=== PATIENT | male | born 1985 | race Two or more races ===

== ENCOUNTER 2018-05-25 17:05 | Emergency (ER) | payer MEDICAID, OTHER ==
[~2018-05-25] VITALS: Ht 172.7 cm; Wt 90.7 kg
[~2018-05-25 17:05] MED LIST: CLINDAMYCIN HC300 MG ORAL; LABETALOL HCL100 MG ORAL; NOVOLIN R100 UNIT/1 SUBQ; REGLAN5 MG ORAL; ZOFRAN4 MG ORAL
[2018-05-25 17:28] VITALS: BP 209/151
--- NOTE | 2018-05-25 18:47 | Emergency Room Report ---
History of Present Illness General Chief Complaint: Chest Pain Source: Patient, EMS Present Illness HPI This patient states that he feels he has fluid overload. He complains of all over body pain. He states that he has end-stage renal disease and is dialysis dependent. He states that [place] which is why he missed his dialysis. He states that dialysis is not a priority for him because his life is very busy. He missed 2 dialysis appointments in the last week. He has no recent illness. Denies cough or congestion. He denies fever or chills. He denies nausea or vomiting. He has no other complaints. Allergies: Coded Allergies: PENICILLINS (Unverified Allergy, Unknown, 09/11/14) Patient History Past Medical History: see triage record, DM, HTN, renal disease, dialysis, other - Pancreatitis Social History: Denies: smoking, alcohol use, drug use Reviewed Nursing Documentation: PMH: Agreed; PSxH: Agreed Nursing Documentation-PMH Past Medical History: No History, Except For Hx Cardiac Problems: No Hx Hypertension: Yes Hx Pacemaker: No Hx Asthma: Yes Hx COPD: No Hx Diabetes: Yes Hx Cancer: No Hx Gastrointestinal Problems: Yes - pancreatitis Hx Dialysis: Yes - renal failure, T,TH, SAT Hx Neurological Problems: No Hx Cerebrovascular Accident: No Hx Seizures: No Review of Systems All Other Systems: negative except mentioned in HPI Physical Exam Vital Signs Date Time Temp Pulse Resp B/P (MAP) Pulse Ox O2 Delivery O2 Flow Rate FiO2 05/25/18 17:08 99.5 103 20 200/100 100 Room Air 05/25/18 17:28 100 Sp02 EP Interpretation: reviewed, normal General Appearance: no apparent distress, alert, GCS 15, non-toxic Head: normocephalic, atraumatic Eyes: bilateral eye normal inspection, bilateral eye PERRL ENT: hearing grossly normal, normal pharynx, no angioedema, normal voice Neck: full range of motion, supple/symm/no masses Respiratory: chest non-tender, lungs clear, normal breath sounds, no respiratory distress, no retraction, no accessory muscle use, speaking full sentences Cardiovascular #1: regular rate, rhythm, no edema Gastrointestinal: normal bowel sounds, non tender, soft, non-distended, no guarding, no rebound Rectal: deferred Musculoskeletal: back normal, gait/station normal, normal range of motion, non- tender Neurologic: alert, oriented x3, responsive, motor strength/tone normal, sensory intact, speech normal Psychiatric: judgement/insight normal, memory normal, mood/affect normal, no suicidal/homicidal ideation Skin: normal color, no rash, warm/dry, well hydrated Medical Decision Making Diagnostic Impression: Primary Impression: Fluid overload Additional Impression: Missed dialysis ER Course This patient missed dialysis multiple times. He is noncompliant with dialysis. The nursing staff and lab was unable to get labs and an IV on this patient. Therefore I had to put in a central line in the right internal jugular vein. This was placed without complication or incident. The line was deep, however, the patient was intolerant of the suturing and so although the line was deeper than it should be, I did not pull it back as this would require re-suturing of the line. He also has some oozing from the line insertion site. The patient was transferred to [facility] secondary to insurance. He is transferred for dialysis. Laboratory Tests Test 05/25/18 20:45 White Blood Count 4.6 K/UL (4.8-10.8) L Red Blood Count 2.93 M/UL (4.70-6.10) L Hemoglobin 8.2 G/DL (14.2-18.0) L Hematocrit 25.9 % (42.0-52.0) L Mean Corpuscular Volume 88 FL (80-99) Mean Corpuscular Hemoglobin 28.0 PG (27.0-31.0) Mean Corpuscular Hemoglobin Concent 31.7 G/DL (32.0-36.0) L Red Cell Distribution Width 12.2 % (11.6-14.8) Platelet Count 63 K/UL (150-450) L Mean Platelet Volume 9.1 FL (6.5-10.1) Neutrophils (%) (Auto) % (45.0-75.0) Lymphocytes (%) (Auto) % (20.0-45.0) Monocytes (%) (Auto) % (1.0-10.0) Eosinophils (%) (Auto) % (0.0-3.0) Basophils (%) (Auto) % (0.0-2.0) Neutrophils % (Manual) Pending Lymphocytes % (Manual) Pending Platelet Estimate Pending Platelet Morphology Pending Prothrombin Time 13.6 SEC (9.30-11.50) H Prothrombin Time INR 1.3 (0.9-1.1) H PTT 27 SEC (23-33) Sodium Level 138 MMOL/L (136-145) Potassium Level 5.5 MMOL/L (3.5-5.1) H Chloride Level 103 MMOL/L (98-107) Carbon Dioxide Level 23 MMOL/L (21-32) Anion Gap 12 mmol/L (5-15) Blood Urea Nitrogen 53 mg/dL (7-18) H Creatinine 10.1 MG/DL (0.55-1.30) H Estimate Glomerular Filtration Rate 6.0 mL/min (>60) Glucose Level 101 MG/DL (74-106) Calcium Level 8.1 MG/DL (8.5-10.1) L Total Bilirubin 0.6 MG/DL (0.2-1.0) Aspartate Amino Transferase (AST) 36 U/L (15-37) Alanine Aminotransferase (ALT) 37 U/L (12-78) Alkaline Phosphatase 212 U/L (46-116) H Total Creatine Kinase 442 U/L (26-308) H Creatine Kinase MB 4.1 NG/ML (0.0-3.6) H Creatine Kinase MB Relative Index 0.9 Troponin I 0.113 ng/mL (0.000-0.056) Total Protein 7.7 G/DL (6.4-8.2) Albumin 3.2 G/DL (3.4-5.0) L Globulin 4.5 g/dL Albumin/Globulin Ratio 0.7 (1.0-2.7) L EKG Diagnostic Results Rate: normal Rhythm: NSR ST Segments: no acute changes Rhythm Strip Diag. Results EP Interpretation: yes Rate: 90's Rhythm: NSR, no PVC's, no ectopy Chest X-Ray Diagnostic Results Chest X-Ray Diagnostic Results : Chest X-Ray Ordered: Yes # of Views/Limited/Complete: 1 View Indication: Shortness of Breath EP Interpretation: Yes Interpretation: other - mild diffuse patchy opacities Impression: Other - See above Electronically Signed by: Mariel Johnson DO Last Vital Signs Date Time Temp Pulse Resp B/P (MAP) Pulse Ox O2 Delivery O2 Flow Rate FiO2 05/25/18 17:28 94 23 Room Air 100 05/25/18 17:28 98.0 209/151 100 Disposition: XFER SHT-TRM HOSP Condition: Stable Referrals: [facility],REFERRING (PCP) Mariel Johnson DO May 25, 2018 18:47
[2018-05-25] MEDS ORDERED: Lidocaine 1% MPF 10mg/ml 5ml INJ ONE (20:30)
[2018-05-25] MEDS ORDERED: Lidocaine 1% Plain 30 ml INJ ONE (20:31)
[2018-05-25] MEDS ORDERED: DiphenhydrAMINE 50mg/ml Inj IVP ONE (21:00)
[2018-05-25] MEDS ORDERED: Morphine Sulfate 4mg/ml Inj (IV/IM USE ONLY) IVP ONE ×2 (21:00→22:30)
[2018-05-25 21:15] VITALS: BP 218/117
[2018-05-25 21:19] LABS: ANION GAP 12 mmol/L (5-15); BLOOD UREA NITROGEN 53 mg/dL (7-18); CALCIUM 8.1 MG/DL (8.5-10.1); CARBON DIOXIDE 23 MMOL/L (21-32); CHLORIDE 103 MMOL/L (98-107); CREATININE 10.1 MG/DL (0.55-1.30); POTASSIUM 5.5 MMOL/L (3.5-5.1); SODIUM 138 MMOL/L (136-145)
[2018-05-25 21:24] LABS: INR 1.3 (0.9-1.1)
[2018-05-25 21:26] LABS: HEMATOCRIT 25.9 % (42.0-52.0); HEMOGLOBIN 8.2 G/DL (14.2-18.0); MEAN CORPUSCULAR VOLUME 88 FL (80-99); PLATELET COUNT 63 K/UL (150-450); RED BLOOD COUNT 2.93 M/UL (4.70-6.10); RED CELL DISTRIBUTION WIDTH 12.2 % (11.6-14.8); WHITE BLOOD COUNT 4.6 K/UL (4.8-10.8)
[2018-05-25 21:32] LABS: ALANINE AMINOTRANSFERASE 37 U/L (12-78); ALBUMIN 3.2 G/DL (3.4-5.0); ALBUMIN/GLOBULIN RATIO 0.7 (1.0-2.7); ALKALINE PHOSPHATASE 212 U/L (46-116); ASPARTATE AMINO TRANSFERASE 36 U/L (15-37); BILIRUBIN,TOTAL 0.6 MG/DL (0.2-1.0); CKMB 4.1 NG/ML (0.0-3.6); CREATINE KINASE 442 U/L (26-308)
[2018-05-25 22:10] VITALS: BP 247/168
[2018-05-26 00:05] VITALS: BP 213/115
[2018-05-26] MEDS ORDERED: cloNIDine 0.2mg Tab ORAL ONE (00:15)
[2018-05-26 00:20] VITALS: BP 189/96
[2018-05-26 00:30] VITALS: BP 189/96
[2018-05-26] MEDS ORDERED: Morphine Sulfate 4mg/ml Inj (IV/IM USE ONLY) IVP ONE (00:45)
--- NOTE | 2018-05-26 12:23 | Diagnostic Imaging Report ---
Indication: Chest pain Technique: One view of the chest Comparison: 04/09/2013 Findings: The heart is borderline enlarged. There is mild interstitial congestion. There is central bronchial wall thickening Impression: Border line cardiomegaly Mild interstitial congestion versus atypical interstitial infiltrate. Correlate with clinical findings
--- NOTE | 2018-05-26 12:54 | Diagnostic Imaging Report ---
Indication: Post line placement Technique: One view of the chest Comparison: 3 hours earlier Findings: Interim placement right jugular central venous catheter, tip of which is deep within the right atrium. The heart is enlarged. There is decreased interstitial congestion. No pneumothorax Impression: Right jugular central venous catheter, tip deep within the right atrium. No radiographically evident complication Decreased interstitial congestion, over 3 hours
--- NOTE | 2018-05-27 15:01 | Cardiology Report ---
APPROVED REPORT EKG Measurement Heart [id number] Normal sinus rhythm T wave abnormality, consider inferior ischemia Abnormal ECG
== END 2018-05-26 00:30 | disposition short-term general hospital (02) ==
LOC: EDBD 17:05 → EMR 17:30
DX: E87.70 Fluid overload, unspecified (principal); I12.0 Hypertensive chronic kidney disease with stage 5 chronic kidney disease or end stage renal disease; E11.22 Type 2 diabetes mellitus with diabetic chronic kidney disease; N18.6 End stage renal disease; Z99.2 Dependence on renal dialysis; Z88.0 Allergy status to penicillin
CPT/HCPCS: 36415; 71045; 80053; 82550; 82553; 84484; 85007; 85025; 85610; 85730; 93005; 96374; 96375; 99285; J0360; J1200; J2001; J2270